=== PATIENT | female | born 2000 | race Two or more races ===

== ENCOUNTER 2023-03-26 10:55 | Emergency (ER) | payer OTHER ==
[~2023-03-26] VITALS: Ht 157.5 cm; Wt 73.5 kg
[2023-03-26 12:48] LABS: Urine Bacteria NONE SEEN /hpf (None Seen); Urine Blood Negative /uL (Negative); Urine Specific Gravity 1.008 (1.001-1.035); Urine WBC <1 /hpf (0 - 5)
[2023-03-26 13:05] LABS: Basophils # (auto) 0 10 ^3/uL (0-0.2); Basophils % (auto) 0.5 % (0.0-2.0); Eosinophils # (auto) 0 10 ^3/uL (0-0.8); Eosinophils % (auto) 0.2 % (0.0-7.0); Hematocrit 42.3 % (36.0-46.0); Hemoglobin 14.2 g/dL (12.2-16.2); Lymphocytes # (auto) 2.2 10 ^3/uL (0.4-5.4); Lymphocytes % (auto) 28.5 % (10.0-50.0); Mean Corpuscular Hemoglobin 30.1 pg (28.0-32.0); Mean Corpuscular Hgb Conc. 33.5 g/dL (32.0-36.0); Monocytes # (auto) 0.4 10 ^3/uL (0-1.3); Monocytes % (auto) 5.2 % (0.0-12.0); Neutrophils # (auto) 5.1 10 ^3/uL (1.6-8.6); Neutrophils % (auto) 65.6 % (37.0-80.0); Red Cell Distribution Width 13.9 % (11.8-14.3); White Blood Cell 7.8 10^3/uL (4.4-10.8)
[2023-03-26 13:21] LABS: Calcium 8.6 mg/dL (8.5-10.1); Potassium 3.8 mmol/L (3.5-5.1)
[2023-03-26 13:25] LABS: BUN/Creatinine Ratio 9.7 (10.0-20.0); Bilirubin, Total 0.4 mg/dL (0.2-1.0); Total Protein 8.3 g/dL (6.4-8.2)
[2023-03-26 15:58] VITALS: BP 128/81
== END 2023-03-26 16:02 | disposition home or self-care (01) ==
LOC: ER 10:55
DX: R10.2 Pelvic and perineal pain (principal); Z32.01 Encounter for pregnancy test, result positive
CPT/HCPCS: 36415; 76801; 76817; 80053; 81001; 84702; 85025; 86850; 86900; 86901

== ENCOUNTER 2023-03-28 07:42 | Emergency (ER) | payer OTHER ==
[~2023-03-28] VITALS: Ht 157.5 cm; Wt 74.0 kg
[2023-03-28 08:27] VITALS: BP 133/84
== END 2023-03-28 09:37 | disposition home or self-care (01) ==
LOC: ER 07:42
DX: O03.9 Complete or unspecified spontaneous abortion without complication (principal); R10.2 Pelvic and perineal pain
CPT/HCPCS: 36415; 84702

== ENCOUNTER 2024-11-16 10:47 | Emergency (ER) | payer SELFPAY ==
[~2024-11-16] VITALS: Ht 160 cm; Wt 72.6 kg
--- NOTE | 2024-11-16 11:04 | ED.PDOC ---
GI ASSESSMENT HPI Comments 24 y/o F, presents to the ED with CC of abdominal pain. Patient states, that she has been experiencing suprapubic abdominal pain xdays. Patient relays, that she has experienced previous symptoms in the past during a previous miscarriage; patient comments she is currently and found out on 11/09/24. Patient denies social history. Patient denies hematuria, dysuria, abdominal cramping, or N/V/D. No other symptoms or modifying factors at this time. Chief Complaint: Abdominal Pain Time Seen by MD: 10:58 Primary Care Provider: UNKNOWN Reviewed Notes: Nurses Notes, Medications, Allergies Allergies: Coded Allergies: NO KNOWN ALLERGIES (Unverified , 03/26/23) Information Source: Patient Mode of Arrival: Ambulatory Timing: Days Duration: Since onset Prehospital treatment: None Quality: None Vomitus: None Stool: Normal Severity: Moderate Recent: None Recent Hx of: None Pain Location: Suprapubic Modifying Factors: Nothing Associated sign and symptoms: None Past Medical History PAST MEDICAL HISTORY: Denies Surgical History: Denies all surgeries GROCERY BAGGER History: No Pertinent GROCERY BAGGER History Family History Family History: Reviewed,noncontributory to illness Social History Smoker: Non-Smoker Alcohol: Denies ETOH Use Drugs: Denies Drug Use Lives In: Home Constitutional: denies: chills, diaphoresis, fatigue, fever, malaise, sweats, weakness, others EENTM: denies: blurred vision, double vision, ear bleeding, ear discharge, ear drainage, ear pain, ear ringing, eye pain, eye redness, hearing loss, mouth pain, mouth swelling, nasal discharge, nose bleeding, nose congestion, nose pain, photophobia, tearing, throat pain, throat swelling, voice changes, others Respiratory: denies: cough, hemoptysis, orthopnea, SOB at rest, shortness of breath, SOB with excertion, stridor, wheezing, others Cardiovascular: denies: chest pain, dizzy spells, diaphoresis, Dyspnea on exertion, edema, irregular heart beat, left arm pain, lightheadedness, palpitations, PND, syncope, others Gastrointestinal: reports: abdominal pain; denies: abdomen distended, blood streaked bowels, constipated, diarrhea, dysphagia, difficulty swallowing, hemat emesis, melena, nausea, poor appetite, poor fluid intake, rectal bleeding, rectal pain, vomiting, others Genitourinary: denies: abnormal vagina bleeding, burning, dyspareunia, dysuria, flank pain, frequency, hematuria, incontinence, pain, , vagina discharge, urgency, others Neurological: denies: dizziness, fainting, headache, left sided numbness, left sided weakness, numbness, paresthesia, pre-existing deficit, right sided numbness, right sided weakness, seizure, speech problems, tingling, tremors, weakness, others Musculoskeletal: denies: back pain, gout, joint pain, joint swelling, muscle pain, muscle stiffness, neck pain, others Integumetry: denies: bruises, change in color, change in hair/nails, dryness, laceration, lesions, lumps, rash, wounds, others Allergic/Immunocompromised: denies: Difficulty Healing, Frequent Infections, Hives, Itching, others Hematologic/Lymphatic: denies: anemia, blood clots, easy bleeding, easy bruising, swollen glands, others Endocrine: denies: excessive hunger, excessive sweating, excessive thirst, excessive urination, flushing, intolerance to cold, intolerance to heat, unexplained weight gain, unexplained weight loss, others Psychiatric: denies: anxiety, bipolar disorder, depression, hopeless, panic disorder, schizophrenia, sleepless, suicidal, others All Other Systems: Reviewed and Negative Physical Exam General Appearance: No Apparent Distress HEENT: Normal ENT Inspection, Pharynx Normal, TMs Normal Neck: Full Range of Motion, Non-Tender, Normal, Normal Inspection Respiratory: Chest Non-Tender, Lungs Clear, No Accessory Muscle Use, No Respiratory Distress, Normal Breath Sounds Cardiovascular: No Edema, No JVD, No Murmur, No Gallop, Normal Peripheral Pulses, Regular Rate/Rhythm Breast Exam: Deferred Gastrointestinal: No Organomegaly, Non Tender, No Pulsatile Mass, Normal Bowel Sounds, Soft Genitalia: Deferred Pelvic: Deferred Rectal: Deferred Extremities: No calf tenderness, Normal capillary refill, Normal inspection, Normal range of motion, Non-tender, No pedal edema Musculoskeletal : Apperance: Normal Neurologic: Alert, central office equipment installer II-XII nml as Tested, No Motor Deficits, Normal Affect, Normal Mood, No Sensory Deficits Cerebellar Function: Normal Reflexes: Normal Skin: Dry, Normal Color, Warm Lymphatic: No Adenopathy Was a procedure done? Was a procedure done?: No GI differential Dx Differential Diagnosis: Cholangitis, Cholecystitis, Gastritis/PUD, Gastroenteritis, Food Poisoning, , Bacterial, Viral X-Ray, Labs, Meds, VS Vital Signs Date Time Temp Pulse Resp B/P (MAP) Pulse Ox O2 Delivery O2 Flow Rate FiO2 11/16/24 11:36 17 Room Air* 0 21 11/16/24 11:30 98.4 65 17 140/79 (99) 98 98.4 11/16/24 10:58 97.5 70 16 123/88 (100) 99 Lab Test 11/16/24 11:12 11/16/24 10:55 Range/Units Beta HCG, Quantitative 3870.0 H 1.5-4.2 mIU/mL Urine Color Colorless Yellow Urine Clarity Clear Clear Urine pH 7.5 5.0-9.0 Urine Specific [place] 1.005 1.001-1.035 Urine Protein Negative Negative Urine Ketones Negative Negative Urine Blood Negative Negative /uL Urine Nitrite Negative Negative Urine Bilirubin Negative Negative Urine Urobilinogen Normal Negative mg/dL Urine Leukocyte Esterase Negative Negative /uL Urine RBC <1 0 - 4 /hpf Urine Microscopic WBC < 1 0-5 /HPF Urine Squamous Epithelial Cells Few <5 /hpf Urine Bacteria None seen None Seen /hpf Urine Glucose Normal Normal mg/dL The patient's urine test is negative The quantitative hCG is 3870 The pelvic ultrasound shows: Impression: Single intrauterine with gestational sac and yolk sac visualized. No pole is visualized. Finding may be due to early . Recommend correlation with serial beta HCG and ultrasound as clinically indicated. 1.6 cm isoechoic structure within the left ovary which may represent a corpus luteal cyst We feel that this could be an early versus demise so we are going to discharge the patient and the patient will follow up with her OBGYN The patient will return to the emergency department's the condition worsens. The patient was to return immediately if there is significant amount of increase in bleeding. Images Reviewed?: Images reviewed and evaluated by me Time of 1ST Reevaluation: 11:28 Reevaluation 1ST: Unchanged Patient Education/Counseling: Diagnosis, Treatment, Prognosis Family Education/Counseling: No Family Present Departure 1 Departure Time of Disposition: 13:59 Impression: Primary Impression: Threatened Disposition: 01 HOME / SELF CARE / HOMELESS Condition: Fair Discharged With: Self Critical Care Note Critical Care Time?: No Stability Stability form required: No Heart Score Heart Score: Heart Score Response (Comments) Value History N/A 0 EKG N/A 0 Age N/A 0 Risk Factors N/A 0 Troponin N/A 0 Total 0 I personally scribed for QUIRINO GUERRERO MD ([email or web address]) on 11/16/24 at 11:04. Electronically submitted by Lamar Walker ([email or web address]). I personally scribed for QUIRINO GUERRERO MD ([email or web address]) on 11/16/24 at 11:09. Electronically submitted by Lamar Walker ([email or web address]). QUIRINO GUERRERO MD Nov 16, 2024 11:04
[2024-11-16 11:24] LABS: Urine Bacteria None Seen /hpf (None Seen)
[2024-11-16 11:36] VITALS: RESP 17
[2024-11-16 11:39] LABS: Urine Blood Negative /uL (Negative); Urine Clarity Clear (Clear); Urine Color Colorless (Yellow); Urine Protein, UAD Negative (Negative); Urine Specific Gravity 1.005 (1.001-1.035); Urine Squamous Epithelial Cell FEW /hpf (<5); Urine Urobilinogen Normal (Negative); Urine pH 7.5 (5.0-9.0)
[2024-11-16 12:51] LABS: Urine WBC < 1 /HPF (0-5)
--- NOTE | 2024-11-16 13:42 | DVH ---
Procedure: US OB ULTRASOUND COMP LESS 14WKS Study Date and Requested Time: 11/16/2024 12:37 PM Study Description: US OB ULTRASOUND COMP LESS 14WKS HISTORY: bleeding Comparison: US OB ULTRASOUND COMP LESS 14WKS on DOS: 03/26/23 Technique: Multiple high resolution alicia-scale images obtained of the uterus, fetus, and other gestat ional components with M-mode scanning for evaluation of heart rate. Findings: Single intrauterine with gestational sac and yolk sac visualized. No pole is visuali zed. The gestational sac measures up to 0.74 cm. Uterus measures 7.9 x 6.2 x 4.3 cm in size. Cervical os appears closed. Right ovary measures 3 x 1.4 x 1.7 cm. Left ovary measures 2.6 x 1.8 x 2.5 cm with a 1.6 cm isoechoic structure. Normal ovarian color Doppler flow bilaterally. Small amount of free fluid within the cul-de-sac Impression: Single intrauterine with gestational sac and yolk sac visualized. No pole is visuali zed. Finding may be due to early . Recommend correlation with serial beta HCG and ultrasoun d as clinically indicated. 1.6 cm isoechoic structure within the left ovary which may represent a corpus luteal cyst
[2024-11-16 14:20] VITALS: BP 131/89; PULSE 70; RESP 18; TEMP 98.6; O2SAT 98
== END 2024-11-16 14:21 | disposition home or self-care (01) ==
LOC: ER 10:47
DX: O20.0 Threatened abortion (principal); Z3A.01 Less than 8 weeks gestation of pregnancy
CPT/HCPCS: 36415; 76801; 76817; 81001; 84702

== ENCOUNTER 2025-03-16 12:06 | Observation (INO) | payer MEDICAID ==
[~2025-03-16] VITALS: Ht 160 cm; Wt 75.0 kg
[2025-03-16 12:15] VITALS: BP 139/74; PULSE 88; RESP 16; TEMP 98.3; O2SAT 98
--- NOTE | 2025-03-16 13:03 | ED.PDOC ---
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 Patient reports that she had bent over yesterday and soon after started to experience sharp RLQ pain. Patient relays that she is currently 20 weeks . Patient notes that her pain is a 3/10 at this time. Patient denies any vaginal bleeding, dizziness, N/V/D, chest pain, fall, or injury. Chief Complaint: Abdominal Pain Time Seen by MD: 13:01 Reviewed Notes: Nurses Notes, Medications, Allergies Allergies: Coded Allergies: NO KNOWN ALLERGIES (Unverified , 03/26/23) Home Meds Reported Medications Vit W/ Ferrous Fumara ( One Daily) Daily Tab, 1 TAB PO DAILY, #90 TAB 3 Refills 03/16/25 Information Source: Patient Mode of Arrival: Ambulatory Timing: Days Prehospital treatment: None Severity: Moderate Sexual Activity: History of: Current Associated Signs and Symptoms: Abdominal Pain Past Medical History PAST MEDICAL HISTORY: Denies Surgical History: Denies all surgeries ALCOHOLIC COUNSELOR History: No Pertinent ALCOHOLIC COUNSELOR History Family History Family History: Reviewed,noncontributory to illness Social History Smoker: Non-Smoker Alcohol: Denies ETOH Use Drugs: Denies Drug Use Lives In: Home Constitutional: denies: chills, diaphoresis, fatigue, fever, malaise, sweats, weakness, others EENTM: denies: blurred vision, double vision, ear bleeding, ear discharge, ear drainage, ear pain, ear ringing, eye pain, eye redness, hearing loss, mouth pain, mouth swelling, nasal discharge, nose bleeding, nose congestion, nose pain, photophobia, tearing, throat pain, throat swelling, voice changes, others Respiratory: denies: cough, hemoptysis, orthopnea, SOB at rest, shortness of breath, SOB with excertion, stridor, wheezing, others Cardiovascular: denies: chest pain, dizzy spells, diaphoresis, Dyspnea on exertion, edema, irregular heart beat, left arm pain, lightheadedness, palpitations, PND, syncope, others Gastrointestinal: reports: abdominal pain; denies: abdomen distended, blood streaked bowels, constipated, diarrhea, dysphagia, difficulty swallowing, hematemesis, melena, nausea, poor appetite, poor fluid intake, rectal bleeding, rectal pain, vomiting, others Genitourinary: denies: abnormal vagina bleeding, burning, dyspareunia, dysuria, flank pain, frequency, hematuria, incontinence, pain, , vagina discharge, urgency, others Neurological: denies: dizziness, fainting, headache, left sided numbness, left sided weakness, numbness, paresthesia, pre-existing deficit, right sided numbness, right sided weakness, seizure, speech problems, tingling, tremors, weakness, others Musculoskeletal: denies: back pain, gout, joint pain, joint swelling, muscle pain, muscle stiffness, neck pain, others Integumetry: denies: bruises, change in color, change in hair/nails, dryness, laceration, lesions, lumps, rash, wounds, others Allergic/Immunocompromised: denies: Difficulty Healing, Frequent Infections, Hives, Itching, others Hematologic/Lymphatic: denies: anemia, blood clots, easy bleeding, easy b ruising, swollen glands, others Endocrine: denies: excessive hunger, excessive sweating, excessive thirst, excessive urination, flushing, intolerance to cold, intolerance to heat, unexplained weight gain, unexplained weight loss, others Psychiatric: denies: anxiety, bipolar disorder, depression, hopeless, panic disorder, schizophrenia, sleepless, suicidal, others All Other Systems: Reviewed and Negative Physical Exam General Appearance: Mild Distress, Normal HEENT: Normal ENT Inspection, PERRL/EOMI, Pharynx Normal, TMs Normal Neck: Full Range of Motion, Non-Tender, Normal, Normal Inspection Respiratory: Chest Non-Tender, Lungs Clear, No Accessory Muscle Use, No Respiratory Distress, Normal Breath Sounds Cardiovascular: No Edema, No JVD, No Murmur, No Gallop, Normal Peripheral Pulses, Regular Rate/Rhythm Breast Exam: Deferred Gastrointestinal: No Organomegaly, No Pulsatile Mass, Normal Bowel Sounds, RLQ, Soft, Other ( abdomen with pain and right lower quadrant) Genitalia: Deferred Pelvic: Deferred Rectal: Deferred Extremities: No calf tenderness, Normal capillary refill, Normal inspection, Normal range of motion, Non-tender, No pedal edema Musculoskeletal : Apperance: Normal Neurologic: Alert, rn residential II-XII nml as Tested, No Motor Deficits, Normal Affect, Normal Mood, No Sensory Deficits Cerebellar Function: Normal Reflexes: Normal Skin: Dry, Normal Color, Warm Peripheral Pulses: 1+ carotid (R), 1+ carotid (L) Lymphatic: No Adenopathy Was a procedure done? Was a procedure done?: No Differential Diagnosis (ALCOHOLIC COUNSELOR) Vaginal Bleeding: - Threatened, Dysmenorrhea, Placenta Previa, UTI Mass / Lesion: N/A Vaginal Discharge: N/A X-Ray, Labs, Meds, VS Vital Signs Date Time Temp Pulse Resp B/P (MAP) Pulse Ox O2 Delivery O2 Flow Rate FiO2 03/16/25 12:15 98.3 88 16 139/74 (95) 98 98.3 Time of 1ST Reevaluation: 13:31 Reevaluation 1ST: Unchanged Patient Education/Counseling: Diagnosis, Treatment Family Education/Counseling: No Family Present Departure 1 Departure Time of Disposition: 18:16 Impression: Primary Impression: Noncompliant patient Qualified Codes: O09.892 - Supervision of other high risk pregnancies, second trimester; Z91.199 - Patient's noncompliance with other medical treatment and regimen due to unspecified reason Additional Impression: Abdominal pain Qualified Codes: R10.31 - Right lower quadrant pain Disposition: 01 HOME / SELF CARE / HOMELESS Admit to: Other (Patient referred to labor and delivery) Condition: Fair Discharged With: Self Critical Care Note Critical Care Time?: No Stability Stability form required: No Heart Score Heart Score: Heart Score Response (Comments) Value History N/A 0 EKG N/A 0 Age <45 0 Risk Factors No known risk factors 0 Troponin N/A 0 Total 0 I personally scribed for REHAN LOZOYA MD ([email or web address]) on 03/16/25 at 13:03. Electronically submitted by Nathan Plascencia ([email or web address]). REHAN LOZOYA MD March 16, 2025 13:03
--- NOTE | 2025-03-16 13:08 | DVHDS2 ---
Physician Discharge Progress N Final Diagnosis: abd pain 22wks Operations or Procedures: Operations or Procedures nst reactive reviewed,sono Condition on Discharge: Good Disposition: Home Discharge Instructions: Diet: Regular Activity: Light activity Medications: na Follow Up Care: Specialist: 3d Discharge Statement: "Patient was advised to return to the ER or call 911 if any headaches, dizziness, shortness of breath, chest pain, abdominal pain, bleeding, fevers, or worsening of medical condition. Patient was counseled about treatment plan, medications, possible side effects, patientverbalized understanding. All questions were answered to the best of my ability. This discharge took greater then 30 minutes in planning, reviewing documentation, counseling the patient, and discussing with other team members." Visit Coding OBGYN Date of Service: March 16, 2025 Billing Provider: PHYLLIS ADAMS DO TOWN CLERK Common Visit Codes: 10647-CCNRRNX OBS CARE (HIGH) TOWN CLERK Procedure Codes: 24655-94- NON-STRESS TEST PHYLLIS ADAMS DO March 16, 2025 13:08
[2025-03-16] MEDS ORDERED: PREN-96 PO (13:16)
== END 2025-03-16 13:35 | disposition home or self-care (01) ==
LOC: ER 12:12 → LDRP 12:30 → UNDOADMOB 12:30 → LDRP 12:39
PROVIDERS: ADMIT Obstetrics & Gynecology; ATTEND Obstetrics & Gynecology
DX: O26.892 Other specified pregnancy related conditions, second trimester (principal); R10.31 Right lower quadrant pain; O09.892 Supervision of other high risk pregnancies, second trimester; Z3A.20 20 weeks gestation of pregnancy; Z91.199 Patient's noncompliance with other medical treatment and regimen due to unspecified reason
CPT/HCPCS: 59025; 81002; 94760; 99284; G0378

== ENCOUNTER 2025-04-27 14:57 | Observation (INO) | payer MEDICAID ==
[~2025-04-27] VITALS: Ht 160 cm; Wt 78.0 kg
[~2025-04-27 14:57] MED LIST: PREN-96 PO
[2025-04-27 15:22] VITALS: BP 125/75; PULSE 77; RESP 18; TEMP 99; O2SAT 98
--- NOTE | 2025-04-27 15:27 | ED.PDOC ---
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 Pt states she is currently 7 months , , who states over the past 2 days, she has felt "funny" and states she has not felt any movement of fetus . Pt denies any associated bleeding or associated nausea, vomiting, fever, chills or associated symptoms. Pt is followed by for her and states last appt was normal. Pt otherwise denies any other symptoms at this time. Chief Complaint: Time Seen by MD: 15:25 Reviewed Notes: Medications, Allergies Allergies: Coded Allergies: NO KNOWN ALLERGIES (Unverified , 03/26/23) Home Meds Reported Medications Vit W/ Ferrous Fumara ( One Daily) Daily Tab, 1 TAB PO DAILY, #90 TAB 3 Refills 03/16/25 Information Source: Patient Mode of Arrival: Ambulatory Brought in by: self Timing: Hours, Days Prehospital treatment: None Severity: Moderate Vaginal Discharge: None Vaginal Lesions: None Vaginal Mass: None Sexual Activity: Last Consensual [place]: Unknown Control: None History of: Current Blood Type: Unknown Associated Signs and Symptoms: None Past Medical History PAST MEDICAL HISTORY: Denies Surgical History: Denies all surgeries SPEEDBOAT DRIVER History: No Pertinent SPEEDBOAT DRIVER History Family History Family History: Reviewed,noncontributory to illness Social History Smoker: Non-Smoker Alcohol: Denies ETOH Use Drugs: Denies Drug Use Lives In: Home Constitutional: denies: chills, diaphoresis, fatigue, fever, malaise, sweats, weakness, others EENTM: denies: blurred vision, double vision, ear bleeding, ear discharge, ear drainage, ear pain, ear ringing, eye pain, eye redness, hearing loss, mouth pain, mouth swelling, nasal discharge, nose bleeding, nose congestion, nose pain, photophobia, tearing, throat pain, throat swelling, voice changes, others Respiratory: denies: cough, hemoptysis, orthopnea, SOB at rest, shortness of breath, SOB with excertion, stridor, wheezing, others Cardiovascular: denies: chest pain, dizzy spells, diaphoresis, Dyspnea on exertion, edema, irregular heart beat, left arm pain, lightheadedness, palpitations, PND, syncope, others Gastrointestinal: denies: abdomen distended, abdominal pain, blood streaked bowels, constipated, diarrhea, dysphagia, difficulty swallowing, hematemesis, melena, nausea, poor appetite, poor fluid intake, rectal bleeding, rectal pain, vomiting, others Genitourinary: denies: abnormal vagina bleeding, burning, dyspareunia, dysuria, flank pain, frequency, hematuria, incontinence, pain, , vagina discharge, urgency, others Neurological: denies: dizziness, fainting, headache, left sided numbness, left sided weakness, numbness, paresthesia, pre-existing deficit, right sided numbness, right sided weakness, seizure, speech problems, tingling, tremors, weakness, others Musculoskeletal: denies: back pain, gout, joint pain, joint swelling, muscle pain, muscle stiffness, neck pain, others Integumetry: denies: bruises, change in color, change in hair/nails, dryness, laceration, lesions, lumps, rash, wounds, others Allergic/Immunocompromised: denies: Difficulty Healing, Frequent Infections, Hives, Itching, others Hematologic/Lymphatic: denies: anemia, blood clots, easy bleeding, easy bruising, swollen glands, others Endocrine: denies: excessive hunger, excessive sweating, excessive thirst, excessive urination, flushing, intolerance to cold, intolerance to heat, unexplained weight gain, unexplained weight loss, others Psychiatric: denies: anxiety, bipolar disorder, depression, hopeless, panic disorder, schizophrenia, sleepless, suicidal, others All Other Systems: Reviewed and Negative Physical Exam General Appearance: No Apparent Distress HEENT: Normal ENT Inspection, Pharynx Normal, TMs Normal Neck: Full Range of Motion, Non-Tender, Normal, Normal Inspection Respiratory: Chest Non-Tender, Lungs Clear, No Accessory Muscle Use, No Respiratory Distress, Normal Breath Sounds Cardiovascular: No Edema, No JVD, No Murmur, No Gallop, Normal Peripheral Pulses, Regular Rate/Rhythm Breast Exam: Deferred Gastrointestinal: Soft, Other (Gravid uterus) Genitalia: Deferred Pelvic: Deferred Rectal: Deferred Extremities: No calf tenderness, Normal capillary refill, Normal inspection, Normal range of motion, Non-tender, No pedal edema Musculoskeletal : Apperance: Normal Neurologic: Alert, internet sales director II-XII nml as Tested, No Motor Deficits, Normal Affect, Normal Mood, No Sensory Deficits Cerebellar Function: Normal Reflexes: Normal Skin: Dry, Normal Color, Warm Lymphatic: No Adenopathy Was a procedure done? Was a procedure done?: No Differential Diagnosis (SPEEDBOAT DRIVER) Vaginal Bleeding: - Inevitable, - Missed, - Threatened Comments current , threatened X-Ray, Labs, Meds, VS Vital Signs Date Time Temp Pulse Resp B/P (MAP) Pulse Ox O2 Delivery O2 Flow Rate FiO2 04/27/25 15:13 99.0 94 16 125/75 (92) 97 99.0 The patient is being sent over to labor and delivery The patient is approximately seven months so we will have monitoring there Time of 1ST Reevaluation: 15:55 Reevaluation 1ST: Unchanged Patient Education/Counseling: Diagnosis, Treatment, Prognosis, Need For Follow Up Family Education/Counseling: No Family Present Departure 1 Departure Time of Disposition: 15:28 Impression: Primary Impression: Abdominal pain in Qualified Codes: O26.899 - Other specified related conditions, unspecified trimester; R10.9 - Unspecified abdominal pain Disposition: 01 HOME / SELF CARE / HOMELESS Condition: Fair Discharged With: Self Critical Care Note Critical Care Time?: No Stability Stability form required: No Heart Score Heart Score: Heart Score Response (Comments) Value History N/A 0 EKG N/A 0 Age N/A 0 Risk Factors N/A 0 Troponin N/A 0 Total 0 I personally scribed for QUIRINO GUERRERO MD ([email or web address]) on 04/27/25 at 15:27. Electronically submitted by Singh Reeves ([email or web address]). QUIRINO GUERRERO MD Apr 27, 2025 15:27
--- NOTE | 2025-04-27 19:12 | DVHDS2 ---
Physician Discharge Progress N Final Diagnosis: well being established Operations or Procedures: Operations or Procedures S: 25yo IUP@28.3wks presents to OB triage from ED. Pt reports "baby is moving different so I just wanted to check on it." Denies UCs/LOF/VB/MCNEAL/vision changes/RUQ pain. PNC with Dr. Max Sanchez, uncomplicated. O: VSS NST reactive for GA A: 25yo IUP@28.3wks well being established P: D/C home [facility]/PTL precautions reviewed Dr. Oates consulted, agrees with POC. Condition on Discharge: Stable Disposition: Home Discharge Instructions: Diet: Regular Activity: No Restrictions, As Tolerated Medications: see med list Follow Up Care: Specialist: f/u with primary OB as scheduled on 05/10/25 Discharge Statement: "Patient was advised to return to the ER or call 911 if any headaches, dizziness, shortness of breath, chest pain, abdominal pain, bleeding, fevers, or worsening of medical condition. Patient was counseled about treatment plan, medications, possible side effects, patientverbalized understanding. All questions were answered to the best of my ability. This discharge took greater then 30 minutes in planning, reviewing documentation, counseling the patient, and discussing with other team members." Visit Coding OBGYN Date of Service: Apr 27, 2025 Billing Provider: ROMA FLOREZ CNM RN SURGERY Common Visit Codes: 60267-[id number] OBS CARE (HIGH) RN SURGERY Procedure Codes: 46323-80- NON-STRESS TEST ROMA FLOREZ CNM Apr 27, 2025 19:12
== END 2025-04-27 16:15 | disposition home or self-care (01) ==
LOC: ER 14:57 → UNDOADMOB 15:20 → LDRP 15:20
PROVIDERS: ADMIT Obstetrics & Gynecology; ATTEND Obstetrics & Gynecology
DX: O26.893 Other specified pregnancy related conditions, third trimester (principal); R10.2 Pelvic and perineal pain; Z3A.28 28 weeks gestation of pregnancy; Z79.899 Other long term (current) drug therapy
CPT/HCPCS: 59025; 81002; 99284; G0378; 94760

== ENCOUNTER 2025-05-25 20:54 | Observation (INO) | payer MEDICAID ==
[~2025-05-25] VITALS: Ht 160 cm; Wt 80.7 kg
--- NOTE | 2025-05-25 22:19 | DVHDS2 ---
Physician Discharge Progress N Final Diagnosis: Round Ligament pain Operations or Procedures: Operations or Procedures S: 25 y/o , IUP @ 32.3wk, presents to OB triage with c/o sharp lower abdominal pain, +FM, denies VB/LOF/UCs. PNC with Dr Max Sanchez, uncomplicated, pt wants to deliver here O: VSS EFM: FHR baseline 130, mod variability, +accels, Neg decels [place]: no UCs A: 25 y/o , IUP @ 32.3wk NST reactive Round ligament pain P: D/C home kick counts reviewed. PTL precautions given and when to return to the hospital. Recommended wearing preg support belt, drink 1 gallon of water and electrolytes a day [facility] business card given for transfer of care Condition on Discharge: Stable Disposition: Home Discharge Instructions: Diet: Regular Activity: No Restrictions, As Tolerated Medications: See med list Follow Up Care: Specialist: Pt instructed to call OB office to make appointment Discharge Statement: "Patient was advised to return to the ER or call 911 if any headaches, dizziness, shortness of breath, chest pain, abdominal pain, bleeding, fevers, or worsening of medical condition. Patient was counseled about treatment plan, medications, possible side effects, patientverbalized understanding. All questions were answered to the best of my ability. This discharge took greater then 30 minutes in planning, reviewing documentation, counseling the patient, and discussing with other team members." Visit Coding OBGYN Date of Service: May 25, 2025 Billing Provider: ROMA FLOREZ CNM DESK REPORTER Common Visit Codes: 58890-BEGSPKY OBS CARE (LOW) DESK REPORTER Procedure Codes: 34143-25- NON-STRESS TEST PRATEEK DIAZ May 25, 2025 22:19
== END 2025-05-25 22:24 | disposition home or self-care (01) ==
LOC: LDRP 20:54
PROVIDERS: ADMIT Obstetrics & Gynecology; ATTEND Obstetrics & Gynecology
DX: O26.893 Other specified pregnancy related conditions, third trimester (principal); R10.2 Pelvic and perineal pain; Z3A.32 32 weeks gestation of pregnancy; Z79.899 Other long term (current) drug therapy
CPT/HCPCS: 59025; 81002; 94760; G0378

== ENCOUNTER 2025-06-05 14:06 | Observation (INO) | payer MEDICAID ==
[2025-06-05] MEDS ORDERED: CEPH250C PO (15:08)
--- NOTE | 2025-06-06 12:26 | DVHDS2 ---
Physician Discharge Progress N Final Diagnosis: abd pain Operations or Procedures: Operations or Procedures nst,sono Condition on Discharge: Good Disposition: Home Discharge Instructions: Diet: Regular Activity: No Restrictions, As Tolerated Medications: na Follow Up Care: Specialist: 2d Discharge Statement: "Patient was advised to return to the ER or call 911 if any headaches, dizziness, shortness of breath, chest pain, abdominal pain, bleeding, fevers, or worsening of medical condition. Patient was counseled about treatment plan, medications, possible side effects, patientverbalized understanding. All questions were answered to the best of my ability. This discharge took greater then 30 minutes in planning, reviewing documentation, counseling the patient, and discussing with other team members." Visit Coding OBGYN Date of Service: Jun 06, 2025 Billing Provider: PHYLLIS ADAMS DO CABINET PROFESSIONAL Common Visit Codes: 40049-[id number] OBS CARE (HIGH) CABINET PROFESSIONAL Procedure Codes: 51308-01- NON-STRESS TEST PHYLLIS ADAMS DO Jun 06, 2025 12:26
== END 2025-06-05 15:33 | disposition home or self-care (01) ==
LOC: OVERFLOW 14:06 → LDRP 14:26
PROVIDERS: ADMIT Obstetrics & Gynecology; ATTEND Obstetrics & Gynecology
DX: O26.893 Other specified pregnancy related conditions, third trimester (principal); R10.9 Unspecified abdominal pain; Z3A.34 34 weeks gestation of pregnancy; Z98.890 Other specified postprocedural states; Z79.899 Other long term (current) drug therapy
CPT/HCPCS: 59025; 81002; 94760; G0378